=== PATIENT | male | born 1950 | race Caucasian/White ===

== ENCOUNTER 2017-06-13 08:58 | Emergency (ER) | payer MEDICARE, OTHER, SELFPAY ==
[2017-06-13 09:32] VITALS: BP 148/88; PULSE 85; RESP 20; TEMP 36.6; O2SAT 97; BMI 24.3
[2017-06-13 09:33] LABS: UTC Influenza A Antigen Negative (Negative); UTC Influenza B Antigen Negative (Negative)
--- NOTE | 2017-06-13 10:06 | HMH.EDUTC ---
[facility] [place] Disposition Clinical Impression: Acute frontal sinusitis Qualifiers: Recurrence: non-recurrent Qualified Code(s): J01.10 - Acute frontal sinusitis, unspecified Disposition: Home, Self-Care Condition on Discharge: Good Instructions: DI for Sinusitis Additional Instructions: * Start antibiotic and be sure to take as ordered for the FULL length of time even if you feel better. Sinus infections do not get better overnight. It may take 2-3 days to notice much improvement so be sure to use conservative measures as discussed for symptoms. * If Fever persist, be sure to follow up. Tylenol every 4 hours as needed no more then 5 times a day or 4000mg in 24 hours and/or ibuprofen every 6 hours as needed no more then 3200mg in 24 hours (as long as your primary care doctor has told you that it is ok to take both) for fever/aches/pain. ER if fever no less than 101 despite tylenol and Ibuprofen * OK to continue Sudafed. * Stop the nose spray you are using. Start Flonase 2 sprays each nostril daily to help with nasal congestion, sinus and ear pressure/inflammation. Will not notice immediate improvement but it works to help make changes and therefore within a few days, improve symptoms * Lots of fluids * Sleep elevated * Humidifier/vaporizer * sinus rinses * Start steroid today. Helps with inflammation therefore, cough and wheezing. Follow directions on package. Rvwd side effects. Pt reports they have taken them before Prescriptions: Doxycycline Hyclate [Vibramycin] 100 mg PO BID #20 cap Fluticasone Propionate [Flonase 50mcg nasal spray 16gm] 2 spr NS DAILY #1 bottle predniSONE [Prednisone 20mg Tab] 20 mg PO BID #10 tab Referrals: Toan Jaeger [Primary Care Provider] - (IMMEDIATELY for new or worsening symptoms, improvement followed by suddenly feeling worse OR no noticeable improvement over the next 48-72 hours. 911 for difficulty ) Time of Disposition: 10:22 Medical Decision Making Vital Signs: 06/13/17 09:32 Temperature 98 F Temperature Source Temporal Artery Scan Pulse Rate [Right Brachial] 85 Respiratory Rate 20 Blood Pressure [Right Arm] 148/88 Blood Pressure Mean [Right Arm] 108 Blood Pressure Source [Right Arm] Automatic Cuff Blood Pressure Position [Right Arm] Sitting 02 Sat by Pulse Oximetry 97 Oxygen Delivery Method Room Air - Lab Data Lab results reviewed: Yes: I reviewed the patient's lab results. Lab Results 06/13/17 09:28: Influenza Type A Ag Negative, Influenza Type B Ag Negative - [place] Inquiry Pt receiving controlled substance: No [facility] [place] HPI - General Stated complaint: dizzy weak chest congestion cough Time Seen by Provider: 06/13/17 10:07 Mode of Arrival: Family Vehicle Source of Information: Patient Limitations: No Limitations Description of Symptoms (Recalled from Triage Doc. by RN): CHEST CONGESTION, COUGH FOR 1 WEEK, HEADACHE AND HEAD CONGESTION, FEVER OFF AND ON FOR 1 WEEK. HEENT Symptoms (Recalled from RN notes): Yes (HEADACHE AND HEAD CONGESTION) Resp Symptoms (Recalled from RN notes): Yes (COUGH CONGESTION) Skin Symptoms (Recalled from RN notes): Yes (FEVER) MS Symptoms (Recalled from RN notes): No Functional Status (Recalled from RN notes): NA - History of Present Illness Provider Complaint: c/o not feeling well for nearly 2-3 weeks now. Started w/ cough but pregressed to rhinorrhea, nasal congestion, sinus pressure, fevers. Saw Olga Mccoy on Saturday, 6 days ago, because own PCP ([place]) was ill. He isn't sure of dx but was started on zpack and has been using a nose spray that starts with az . No improvement and since then is when fevers 99-101 started. has since developed same symptoms and is slowly already improving. - Related Data Home Medications Medication Instructions Recorded Confirmed Aspirin [Aspirin 81mg EC Tab] 81 mg PO DAILY 06/13/17 06/13/17 Azelastine HCl [Azelastine Nasal 137 mcg NS BID 06/13/17 06/13/17 [place] 30mL Bottle] Metoprolol Ta
--- NOTE | 2017-06-13 10:15 | ED_ITS ---
[facility] [place] Clinical Impression: Acute frontal sinusitis Qualifiers: Recurrence: non-recurrent Qualified Code(s): J01.10 - Acute frontal sinusitis, unspecified Disposition: Home, Self-Care Condition on Discharge: Good Instructions: DI for Sinusitis Additional Instructions: * Start antibiotic and be sure to take as ordered for the FULL length of time even if you feel better. Sinus infections do not get better overnight. It may take 2-3 days to notice much improvement so be sure to use conservative measures as discussed for symptoms. * If Fever persist, be sure to follow up. Tylenol every 4 hours as needed no more then 5 times a day or 4000mg in 24 hours and/or ibuprofen every 6 hours as needed no more then 3200mg in 24 hours (as long as your primary care doctor has told you that it is ok to take both) for fever/aches/pain. ER if fever no less than 101 despite tylenol and Ibuprofen * OK to continue Sudafed. * Stop the nose spray you are using. Start Flonase 2 sprays each nostril daily to help with nasal congestion, sinus and ear pressure/inflammation. Will not notice immediate improvement but it works to help make changes and therefore within a few days, improve symptoms * Lots of fluids * Sleep elevated * Humidifier/vaporizer * sinus rinses * Start steroid today. Helps with inflammation therefore, cough and wheezing. Follow directions on package. Rvwd side effects. Pt reports they have taken them before Prescriptions: Doxycycline Hyclate [Vibramycin] 100 mg PO BID #20 cap Fluticasone Propionate [Flonase 50mcg nasal spray 16gm] 2 spr NS DAILY #1 bottle predniSONE [Prednisone 20mg Tab] 20 mg PO BID #10 tab Referrals: Toan Jaeger [Primary Care Provider] - (IMMEDIATELY for new or worsening symptoms, improvement followed by suddenly feeling worse OR no noticeable improvement over the next 48-72 hours. 911 for difficulty ) Time of Disposition: 10:22 Medical Decision Making Vital Signs: 06/13/17 09:32 Temperature 98 F Temperature Source Temporal Artery Scan Pulse Rate [Right Brachial] 85 Respiratory Rate 20 Blood Pressure [Right Arm] 148/88 Blood Pressure Mean [Right Arm] 108 Blood Pressure Source [Right Arm] Automatic Cuff Blood Pressure Position [Right Arm] Sitting 02 Sat by Pulse Oximetry 97 Oxygen Delivery Method Room Air - Lab Data Lab results reviewed: Yes: I reviewed the patient's lab results. Lab Results 06/13/17 09:28: Influenza Type A Ag Negative, Influenza Type B Ag Negative - [place] Inquiry Pt receiving controlled substance: No [facility] [place] H[place] - General Stated complaint: dizzy weak chest congestion cough Time Seen by Provider: 06/13/17 10:07 Mode of Arrival: Family Vehicle Source of Information: Patient Limitations: No Limitations Description of Symptoms (Recalled from Triage Doc. by RN): CHEST CONGESTION, COUGH FOR 1 WEEK, HEADACHE AND HEAD CONGESTION, FEVER OFF AND ON FOR 1 WEEK. HEENT Symptoms (Recalled from RN notes): Yes (HEADACHE AND HEAD CONGESTION) Resp Symptoms (Recalled from RN notes): Yes (COUGH CONGESTION) Skin Symptoms (Recalled from RN notes): Yes (FEVER) MS Symptoms (Recalled from RN notes): No Functional Status (Recalled from RN notes): NA - History of Present Illness Provider Complaint: c/o not feeling well for nearly 2-3 weeks now. Started w/ cough but pregressed to rhinorrhea, nasal congestion, sinus pressure, fevers. Saw Olga Mccoy on Saturday, 6 days ago, because own PCP ([place]) was ill. He isn't sure of dx but was start
== END 2017-06-13 10:25 | disposition home or self-care (01) ==
PROVIDERS: Emergency Provider Nurse Practitioner Family; PCP Family Medicine
DX: J01.10 Acute frontal sinusitis, unspecified (principal); I10 Essential (primary) hypertension; Z79.82 Long term (current) use of aspirin; Z79.899 Other long term (current) drug therapy; Z88.0 Allergy status to penicillin
CPT/HCPCS: 87804; 99201